=== PATIENT | male | born 1995 | race American Indian/Alaskan Native ===

== ENCOUNTER 2021-09-16 04:15 | Emergency (ER) | payer BC, MEDICAID, OTHER ==
[2021-09-16] MEDS ORDERED: Ibuprofen 800 MG Tab PO ONE (04:51)
[2021-09-16] MEDS ORDERED: Acetaminophen 500 MG Tab PO ONE (04:51)
[2021-09-16] MEDS ORDERED: Alum Hydroxide/Mag Hydroxide 30 ML, Lidocaine 2% 15 ML PO ONE ×2 (04:53)
--- NOTE | 2021-09-16 04:58 | EDM.PDOC ---
ED HPI GENERAL MEDICAL PROBLEM - General Chief Complaint: Abdominal Pain Stated Complaint: stomach cramping Time Seen by Provider: 09/16/21 04:25 Source of Information: Reports: Patient History Limitations: Reports: No Limitations - History of Present Illness INITIAL COMMENTS - FREE TEXT/NARRATIVE: c/o upper abd pain pt ate pork chop and mash potato and corn at his grandmother's last night later in evening when going to bed he had pain in his upper mid to upper left abd, cramping, no n/v, no cough/sob, no f/c/d tired, little sleep during night no radiation took Pepto Bismol that did not help on no regular meds has had Pfizer COVID vax x 2, no booster, not had COVID SH: not working outside house, lives with mother, sister and nephew last BM 24h ago, soft drank bourbon last night, smokes 1 ppd, THC 3d ago Abdomen Pain Score (Numeric/FACES): 6 - Related Data Allergies Allergy/AdvReac Type Severity Reaction Status Date / Time No Known Allergies Allergy Verified 02/14/15 14:47 Home Meds: Home Meds Melatonin 5 mg PO BEDTIME 02/14/15 [History] Past Medical History - Infectious Disease History Infectious Disease History: Reports: None Social & Family History - Family History Family Medical History: No Pertinent Family History - Tobacco Use Tobacco Use Status *Q: Current Every Day Tobacco User Years of Tobacco use: 4 Packs/Tins Daily: 1 - Caffeine Use Caffeine Use: Reports: Soda - Recreational Drug Use Recreational Drug Use: Yes Drug Use in Last 12 Months: Yes Recreational Drug Type: Reports: Marijuana/Hashish Recreational Drug Use Frequency: Weekly ED ROS GENERAL - Review of Systems Review Of Systems: See Below Constitutional: Reports: No Symptoms HEENT: Reports: No Symptoms Respiratory: Reports: No Symptoms Cardiovascular: Reports: No Symptoms Endocrine: Reports: No Symptoms GI/Abdominal: Reports: Abdominal Pain. Denies: Constipation, Diarrhea, Nausea, Vomiting : Reports: No Symptoms Musculoskeletal: Reports: No Symptoms Skin: Reports: No Symptoms Neurological: Reports: No Symptoms Psychiatric: Reports: No Symptoms Hematologic/Lymphatic: Reports: No Symptoms Immunologic: Reports: No Symptoms ED EXAM, GI/ABD - Physical Exam Exam: See Below Exam Limited By: No Limitations General Appearance: Alert, WD/WN, No Apparent Distress Ears: Hearing Grossly Normal Nose: Normal Inspection, Normal Mucosa, No Blood Throat/Mouth: Normal Inspection, Normal Lips, Normal Teeth, Normal Gums, Normal Oropharynx, Normal Voice, No Airway Compromise Head: Atraumatic, Normocephalic Neck: Normal Inspection, Supple, Non-Tender, Full Range of Motion Respiratory/Chest: No Respiratory Distress, Lungs Clear, Normal Breath Sounds, No Accessory Muscle Use, Chest Non-Tender Cardiovascular: Regular Rate, Rhythm, No Edema, No Gallop, No Murmur, No Rub GI/Abdominal Exam: Normal Bowel Sounds, Soft, Non-Tender, No Organomegaly, No Distention, No Mass, Other (very good BS x 4, no rushes, ND, no definite tenderness anywhere, no CVAT) Back Exam: Normal Inspection, Full Range of Motion. No: CVA Tenderness (R), CVA Tenderness (L) Extremities: Normal Inspection, Non-Tender, No Pedal Edema Neurological: Alert, Oriented, CN II-XII Intact, Normal Cognition, Normal Gait, No Motor/Sensory Deficits Psychiatric: Normal Affect, Normal Mood Skin Exam: Warm, Dry, Intact, Normal Color, No Rash Lymphatic: No Adenopathy Comments: moves without difficulty or limitation, walked easily to bathroom, NAD Course - Vital Signs Last Recorded V/S: Last Vital Signs Temp 36.4 C 09/16/21 04:24 Pulse 83 09/16/21 04:24 Resp 17 09/16/21 04:24 BP 130/82 09/16/21 04:24 Pulse Ox 96 09/16/21 04:24 - Orders/Labs/Meds Labs: Laboratory Tests 09/16/21 09/16/21 09/16/21 Range/Units 04:55 05:00 05:00 WBC 11.6 H (3.2-10.1) x10-3/uL RBC 5.15 (3.90-5.90) x10(6)uL Hgb 15.4 (12.9-17.7) g/dL Hct 46.0 (38.3-50.1) % MCV 89.2 (80.8-98.7) fL MCH 29.8 (27.0-33.3) pg MCHC 33.5 (28.7-35.3) g/dL RDW 13.6 (12.4-15.0) % Plt Count 309 (117-477) x10(3)uL MPV 7.8 (6.7-11.0) fL Neut % (Auto) 78.2 H (40.3-71.8) % Lymph % (Auto) 14.8 L (15.8-45.3) % [place] % (Auto) 5.4 L (5.5-15.2) % Eos % (Auto) 0.7 (0.1-6.8) % Baso % (Auto) 0.9 (0.3-3.8) % Neut # (Auto) 9.1 H (1.7-6.9) x10-3/uL Lymph # (Auto) 1.7 (0.5-4.5) x10-3/uL [place] # (Auto) 0.6 (0.0-1.2) x10-3/uL Eos # (Auto) 0.1 (0.0-0.6) x10-3/uL Baso # (Auto) 0.1 (0.0-0.3) x10-3/uL Sodium 139 (135-145) mmol/L Potassium 4.0 (3.5-5.3) mmol/L Chloride 104 (100-110) mmol/L Carbon Dioxide 24 (21-32) mmol/L BUN 9 (7-18) mg/dL Creatinine 0.9 (0.70-1.30) mg/dL Est Cr Clr Drug Dosing 114.21 mL/min Estimated GFR (MDRD) > 60 (>60) BUN/Creatinine Ratio 10.0 (9-20) Glucose 113 (80-116) mg/dL Calcium 9.0 (8.6-10.2) mg/dL Total Bilirubin 0.2 (0.1-1.3) mg/dL AST 18 (5-25) IU/L ALT 35 (12-36) U/L Alkaline Phosphatase 112 (56-112) IU/L C-Reactive Protein (0.5-0.9) mg/dL Total Protein 8.0 (6.0-8.0) g/dL Albumin 3.9 (3.5-5.2) g/dL Globulin 4.1 g/dL Albumin/Globulin Ratio 1.0 Lipase (73-393) U/L Urine Color Yellow (YELLOW) Urine Appearance Clear (CLEAR) Urine pH 6.0 (5.0-6.5) Ur Specific [place] 1.010 (1.010-1.025) Urine Protein Negative (NEGATIVE) mg/dL Urine Glucose (UA) Normal (NORMAL) mg/dL Urine Ketones Negative (NEGATIVE) mg/dL Urine Occult Blood Negative (NEGATIVE) Urine Nitrite Negative (NEGATIVE) Urine Bilirubin Negative (NEGATIVE) Urine Urobilinogen Normal (NEGATIVE) mg/dL Ur Leukocyte Esterase Negative (NEGATIVE) Urine RBC 0-5 (0-5) Urine WBC 0-5 (0-5) Ur Squamous Epith Cells Occasional (NS,R,O) Urine Bacteria Rare H (NS) Ethyl Alcohol (<0.03) % SARS-CoV-2 RNA (KEITH) (NEGATIVE) 09/16/21 09/16/21 09/16/21 Range/Units 05:00 05:00 05:08 WBC (3.2-10.1) x10-3/uL RBC (3.90-5.90) x10(6)uL Hgb (12.9-17.7) g/dL Hct (38.3-50.1) % MCV (80.8-98.7) fL MCH (27.0-33.3) pg MCHC (28.7-35.3) g/dL RDW (12.4-15.0) % Plt Count (117-477) x10(3)uL MPV (6.7-11.0) fL Neut % (Auto) (40.3-71.8) % Lymph % (Auto) (15.8-45.3) % [place] % (Auto) (5.5-15.2) % Eos % (Auto) (0.1-6.8) % Baso % (Auto) (0.3-3.8) % Neut # (Auto) (1.7-6.9) x10-3/uL Lymph # (Auto) (0.5-4.5) x10-3/uL [place] # (Auto) (0.0-1.2) x10-3/uL Eos # (Auto) (0.0-0.6) x10-3/uL Baso # (Auto) (0.0-0.3) x10-3/uL Sodium (135-145) mmol/L Potassium (3.5-5.3) mmol/L Chloride (100-110) mmol/L Carbon Dioxide (21-32) mmol/L BUN (7-18) mg/dL Creatinine (0.70-1.30) mg/dL Est Cr Clr Drug Dosing mL/min Estimated GFR (MDRD) (>60) BUN/Creatinine Ratio (9-20) Glucose (80-116) mg/dL Calcium (8.6-10.2) mg/dL Total Bilirubin (0.1-1.3) mg/dL AST (5-25) IU/L ALT (12-36) U/L Alkaline Phosphatase (56-112) IU/L C-Reactive Protein < 0.2 L (0.5-0.9) mg/dL Total Protein (6.0-8.0) g/dL Albumin (3.5-5.2) g/dL Globulin g/dL Albumin/Globulin Ratio Lipase 161 (73-393) U/L Urine Color (YELLOW) Urine Appearance (CLEAR) Urine pH (5.0-6.5) Ur Specific [place] (1.010-1.025) Urine Protein (NEGATIVE) mg/dL Urine Glucose (UA) (NORMAL) mg/dL Urine Ketones (NEGATIVE) mg/dL Urine Occult Blood (NEGATIVE) Urine Nitrite (NEGATIVE) Urine Bilirubin (NEGATIVE) Urine Urobilinogen (NEGATIVE) mg/dL Ur Leukocyte Esterase (NEGATIVE) Urine RBC (0-5) Urine WBC (0-5) Ur Squamous Epith Cells (NS,R,O) Urine Bacteria (NS) Ethyl Alcohol < 0.03 (<0.03) % SARS-CoV-2 RNA (KEITH) Negative (NEGATIVE) Meds: Medications Discontinued Medications Generic Name Dose Route Start Last Admin Trade Name Freq PRN Reason Stop Dose Admin Acetaminophen 1,000 mg 09/16/21 04:51 09/16/21 04:55 Acetaminophen 500 Mg Tab PO 09/16/21 04:52 1,000 mg ONETIME ONE Administration Al Hydroxide/Mg Hydroxide 30 0 ml 09/16/21 04:53 09/16/21 04:57 ml/ Lidocaine HCl 15 ml PO 09/16/21 04:54 30 ml ONETIME ONE Administration Ibuprofen 800 mg 09/16/21 04:51 09/16/21 04:55 Ibuprofen 800 Mg Tab PO 09/16/21 04:52 800 mg ONETIME ONE Administration - Re-Assessments/Exams Free Text/Narrative Re-Assessment/Exam: 09/16/21 06:20 mother is here, she is not ill labs neg slight increase wbc/segs which is nonspecific pt says he feels fine and sxs gone after meds here (GI cocktail, ibuprofen APAP), still need to consider COVID, dyspepsia and constipation are also considerations Departure - Departure Time of Disposition: 06:15 Disposition: Home, Self-Care 01 Condition: Good Clinical Impression: Upper abdominal pain - Discharge Information *PRESCRIPTION DRUG MONITORING PROGRAM REVIEWED*: Not Applicable *COPY OF PRESCRIPTION DRUG MONITORING REPORT IN PATIENT RANDY: Not Applicable Instructions: COVID-19: How to Protect Yourself and Others - [facility], 10 Things You Can Do to Manage Your COVID-19 Symptoms at Home - [facility] (03/28/2021) Referrals: Gerard Franklin MD [Primary Care Provider] - Forms: ED Department Discharge Additional Instructions: For heartburn, take liquid antacid like Pepto Bismol 30 ml every 4 hours as needed. For pain, take ibuprofen 200 mg 4 tabs 3 times a day for 2 days, longer if needed. (Take no more than 12 tabs in 24 hours). If you have difficulty moving your bowels, take milk of magnesium 30 ml 2 times a day for 2-3 days until you have a bowel movement. If your symptoms persist, you should recheck your COVID test in 3 days as the COVID test is sometimes negative for 2-3 days before it turns positive. See your doctor if you feel worse or still have symptoms in 6 days. Sepsis Event Note (ED) - Evaluation Sepsis Screening Result: No Definite Risk - Focused Exam Vital Signs: Vital Signs Temp Pulse Resp BP Pulse Ox 09/16/21 04:24 36.4 C 83 17 130/82 96
== END 2021-09-16 06:24 | disposition home or self-care (01) ==
LOC: FB.ED 04:15
DX: R10.12 Left upper quadrant pain (principal); Z72.0 Tobacco use; Z20.822 Contact with and (suspected) exposure to COVID-19
CPT/HCPCS: 36415; 80053; 80307; 81001; 83690; 85025; 86140; 87635; 99284; A9270; U0002